=== PATIENT | female | born 1960 | race Asian ===

== ENCOUNTER → 2017-08-02 | Outpatient (CLI) | payer BC | END | disposition home or self-care (01) | LOC: CFH 09:09 | PROVIDERS: ATTEND Genetic Counselor, MS | DX: Z12.31 Encounter for screening mammogram for malignant neoplasm of breast (principal) | CPT/HCPCS: 77063; 77067 ==

== ENCOUNTER 2020-03-05 13:51 | Outpatient (CLI) | payer BC ==
[~2020-03-05 13:51] MED LIST: LIDOCAINE-MPF 1%, 5ML ONE
== END 2020-03-05 23:59 | disposition home or self-care (01) ==
LOC: RAD 13:51
PROVIDERS: ATTEND Surgery
DX: E04.2 Nontoxic multinodular goiter (principal)
CPT/HCPCS: 10005; 88112; 88173; 88305